=== PATIENT | male | born 1975 | race Caucasian/White ===

== ENCOUNTER 2024-04-13 12:23 | Observation (INO) | payer OTHER ==
[2024-04-13 15:19] VITALS: BMI 26.4
[2024-04-13 17:45] LABS: Troponin I Less than 0.010 ng/mL (< 0.028)
[2024-04-13 19:34] LABS: Troponin I Less than 0.010 ng/mL (< 0.028)
[2024-04-13] MEDS: Famotidine 20 MG TAB PO SCH (21:59)
[2024-04-14] MEDS: Acetaminophen 325 MG TAB PO PRN (05:00)
[2024-04-14 09:17] LABS: #Basophils 0.05 10x3/uL (0.0-0.2); #Eosinphils 0.09 10x3/uL (0.0-0.5); #Monocytes 0.52 10x3/uL (0.0-1.1); #Neutrophils 5.65 10x3/uL (1.5-8.4); %Basophils 0.7 % (0.0-2.0); %Eosinophils 1.2 % (0.0-6.0); %Lymphocytes 16.2 % (18.0-47.0); %Monocytes 6.8 % (0.0-10.0); %Neutrophils 74.2 % (40.0-75.0); Hematocrit 44.2 % (38.8-50.0); Hemoglobin 15.7 g/dL (13.5-17.5); Mean Corpuscular HGB CONC 35.5 g/dL (32.0-36.0); Mean Corpuscular Hemoglobin 30.8 pg (27.0-33.0); Mean Corpuscular Volume 86.8 fL (81.2-95.1); Mean Platelet Volume 9.4 fL (7.4-10.4); Platelet Count 297 10x3/uL (150-450); RBC Distribution Width 11.9 % (11.5-14.5); Red Blood Cell (RBC) Count 5.09 10x6/uL (4.32-5.72); White Blood Cell (WBC) Count 7.6 10x3/uL (3.5-10.5)
[2024-04-14 09:30] LABS: Anion Gap 14 mmol/L (10-20); BUN (Urea Nitrogen) 8 mg/dL (8.9-20.6); Calc. Creatinine Clearance 125 mL/min (70-130); Calcium 9.6 mg/dL (7.8-10.44); Carbon Dioxide 22 mmol/L (22-29); Chloride 104 mmol/L (98-107); Estimated GFR 107; Glucose 109 mg/dL (70-105); Potassium 3.8 mmol/L (3.5-5.1); Sodium 136 mmol/L (136-145)
[2024-04-14] MEDS: Ondansetron ODT 4 MG TAB PO PRN (09:43)
[2024-04-14] MEDS: Citalopram 20 MG TAB PO SCH (09:43)
[2024-04-14] MEDS: Loperamide HCl 2 MG CAP PO PRN (09:43)
[2024-04-14] MEDS: Enoxaparin 40 MG (0.4 mL) SYRINGE SC SCH (09:44)
[2024-04-14] MEDS: Aspirin Chewable 81 MG TAB PO SCH (09:44)
[2024-04-14 12:07] LABS: Cardiac Risk 5.7 (Less than 4.5); Cholesterol 244 mg/dl (< 200 Desired); HDL Cholesterol 43 mg/dL (>60 Neg Risk); LDL Cholesterol, Calculated 180 mg/dL; Magnesium 1.7 mg/dL (1.6-2.6); Triglycerides 103 mg/dL (Less than 150)
[2024-04-14] MEDS: Potassium Chloride 20 MEQ TAB PO SCH (12:07)
[2024-04-14 13:35] LABS: Amphetamine Not Detected (NotDetected); Barbiturates Screen Not Detected (NotDetected); Benzodiazepine Screen Not Detected (NotDetected); Cocaine Metabolite Screen Not Detected (NotDetected); Methadone Not Detected (NotDetected); Methamphetamine Not Detected (NotDetected); Opiate Screen Not Detected (NotDetected); Oxycodone Screen Not Detected (NotDetected); Phencyclidine (PCP) Not Detected (NotDetected); THC/Cannabinoid Screen Detected (NotDetected); Tricyclic Screen Not Detected (NotDetected)
[2024-04-14 14:16] LABS: Hemoglobin A1c 5.4 % (4.0-6.0)
[2024-04-14] MEDS: QUEtiapine 100 MG TAB PO SCH (20:59)
[2024-04-14] MEDS: traZODone HCl 50 MG TAB PO SCH (20:59)
[2024-04-15] MEDS: Magnesium 2 GM/50 ML(in water) 2 GM in Premix 1 BAG IVPB SCH (11:12)
[2024-04-15] MEDS ORDERED: Sucralfate 1 GM TAB PO SCH (11:30)
[2024-04-15] MEDS ORDERED: Pancrelipase DR 12,000 1 CAP PO SCH (12:00)
[2024-04-15] MEDS: Cholestyramine/Aspartame 4 gm Packet PO SCH (12:27)
[2024-04-15 14:09] VITALS: BP 121/68; TEMP 98.1
[2024-04-15] MEDS ORDERED: Cholestyramine/Aspartame 4 gm Packet PO SCH (22:00)
== END 2024-04-15 14:31 | disposition home or self-care (01) ==
LOC: CSHTELE 14:47
PROVIDERS: ADMIT Internal Medicine; ATTEND Family Medicine
PROC: B246ZZZ Ultrasonography of Right and Left Heart (ICD-10-PCS; principal; 2024-04-15)
DX: R07.9 Chest pain, unspecified (principal); R61 Generalized hyperhidrosis; F41.9 Anxiety disorder, unspecified; F15.90 Other stimulant use, unspecified, uncomplicated; F31.9 Bipolar disorder, unspecified; E78.5 Hyperlipidemia, unspecified; Z88.0 Allergy status to penicillin; Z86.73 Personal history of transient ischemic attack (TIA), and cerebral infarction without residual deficits; Z87.891 Personal history of nicotine dependence; F12.10 Cannabis abuse, uncomplicated; Z79.82 Long term (current) use of aspirin; Z79.899 Other long term (current) drug therapy
CPT/HCPCS: 36415; 80048; 80061; 80306; 83036; 83735; 85025; 93306; 96372; 96374; G0378; J1650; J3475; Q0162